=== PATIENT | male | born 1945 | race Caucasian/White ===

== ENCOUNTER 2019-06-05 15:47 | Emergency (ER) | payer MEDICARE, OTHER ==
[~2019-06-05] VITALS: Ht 170.2 cm; Wt 99.8 kg
--- NOTE | 2019-06-05 16:12 | NUR ---
Dr Vega at the bedside for MSE.
[2019-06-05] MEDS ORDERED: ONDANSETRON 4 MG/2 ML VIAL IV ONE (16:15)
[2019-06-05] MEDS ORDERED: IV NORMAL SALINE 1000 ML BAG IV ONE ×2 (16:15→17:45)
[2019-06-05] MEDS ORDERED: ONDANSETRON 4 MG/2 ML VIAL ONE (16:33)
[2019-06-05 16:34] LABS: BASOPHILS % (AUTO) 0.6 % (0.0-2.0); EOSINOPHILS # (AUTO) 0.5 K/uL (0.0-0.7); EOSINOPHILS % (AUTO) 9.2 % (0.0-7.0); HEMATOCRIT 29.9 % (36.7-47.1); HEMOGLOBIN 9.7 g/dL (12.5-16.3); LYMPHOCYTES # (AUTO) 0.6 K/uL (20.0-40.0); LYMPHOCYTES % (AUTO) 11.1 % (20.5-51.5); MEAN CORPUSCULAR HEMOGLOBIN 27.9 uug (23.8-33.4); MEAN CORPUSCULAR HGB CONC 32 g/dL (32.5-36.3); MEAN CORPUSCULAR VOLUME 86.2 fL (73.0-96.2); MONOCYTES # (AUTO) 0.5 K/uL (2.0-10.0); MONOCYTES % (AUTO) 9.5 % (0.0-11.0); NEUTROPHILS # (AUTO) 3.6 K/uL (1.8-8.9); NEUTROPHILS % (AUTO) 69.6 % (38.5-71.5); PLATELET COUNT (AUTO) 301 K/uL (152-348); RED BLOOD CELL COUNT(AUTO) 3.47 MIL/uL (4.06-5.63); WHITE BLOOD COUNT (AUTO) 5.2 K/uL (3.6-10.2)
[2019-06-05 16:35] LABS: CARBON DIOXIDE 32 mmol/L (21-32); CHLORIDE 110 mmol/L (98-107); CREATININE 1.4 mg/dL (0.6-1.3); GLUCOSE 123 mg/dL (74-106); POTASSIUM 3.7 mmol/L (3.5-5.1); UREA NITROGEN, BLOOD 12 mg/dL (7-18)
--- NOTE | 2019-06-05 16:36 | NUR ---
PT SAYS THAT HE TAKES "BUNCH OF PSYCH MEDS AT HOME BUT DOES NOT KNOW THE NAMES, NO RECORD WAS SENT FOR THE PT. PER PARAMEDICS, PT TAKES AMLODIPINE AND WELLBUTRIN AT HOME.
[2019-06-05 16:42] LABS: ALANINE AMINOTRANSFERASE 18 U/L (16-63); ALKALINE PHOSPHATASE 87 U/L (50-136); ASPARTATE AMINOTRANSFERASE 13 U/L (15-37); BILIRUBIN,DIRECT 0.1 mg/dL (0.0-0.2); BILIRUBIN,TOTAL 0.3 mg/dL (0.2-1.0); LIPASE 114 U/L (73-393); TOTAL PROTEIN, SERUM 6.2 g/dL (6.4-8.2)
--- NOTE | 2019-06-05 17:29 | NUR ---
Patient is resting comfortably in bed with eyes closed, NAD noted.
--- NOTE | 2019-06-05 18:18 | NUR ---
Placed a call to Milagro Perez(pt's resident), and spoke to Mauro. Per Mauro, pt needs to come back to facility via ambulance.
--- NOTE | 2019-06-05 18:20 | NUR ---
Called [facility], ETA is [phone]. Trip # [id number].
--- NOTE | 2019-06-05 21:13 | NUR ---
Spoke with Afshan from [facility] requesting for ETA. per rep ETA will be around 2145 - 2200. pt made aware. no further concerns at this time
--- NOTE | 2019-06-05 21:53 | NUR ---
SPOKE WITH KAREN FROM [facility]. ETA IS 15-20MINS. PATIENT MADE AWARE
--- NOTE | 2019-06-05 22:29 | NUR ---
IV removed. Catheter intact and site benign. Pressure and 4x4 gauze applied to site. No bleeding noted. pt taken by [facility]. all belongings given. Patient discharged back to facility in stable conditon. Written and verbal after care instructions given. Patient verbalizes understanding of instructions. Patient ambulating with steady gait
[2019-06-05 22:31] VITALS: BP 145/85
== END 2019-06-05 22:32 | disposition home or self-care (01) ==
LOC: ER 15:48
DX: E86.0 Dehydration (principal); R53.83 Other fatigue; F31.9 Bipolar disorder, unspecified; Z88.0 Allergy status to penicillin; Z88.1 Allergy status to other antibiotic agents
CPT/HCPCS: 36415; 71045; 74018; 80048; 80076; 83690; 84484; 85025; 85730; 93005; 96361; 96374; 99284; J2405; 70030-TC; A4663; J7030